=== PATIENT | female | born 1935 | race Caucasian/White ===

== ENCOUNTER 2020-08-23 18:35 | Inpatient (IN) | payer MEDICARE, BC ==
[2020-08-23] MEDS ORDERED: Senokot S 8.6-50 MG TAB PO PRN (22:13)
[2020-08-23] MEDS ORDERED: Acetaminophen 325 MG TAB PO PRN (22:13)
[2020-08-23 23:25] LABS: #Eosinphils 0.2 thou/uL (0.0-0.7); #Lymphocytes 0.8 thou/uL (1.20-3.40); #Monocytes 0.7 thou/uL (0.11-0.59); #Neutrophils 4.1 thou/uL (1.40-6.50); %Basophils 0.4 % (0.0-1.0); %Eosinophils 3.1 % (0.0-10.0); %Lymphocytes 14.5 % (21.0-51.0); %Monocytes 11.5 % (0.0-10.0); %Neutrophils 70.6 % (42.0-75.0); Mean Corpuscular HGB CONC 34.1 g/dL (32.0-36.0); Mean Corpuscular Hemoglobin 31.9 pg (27.0-31.0); Mean Corpuscular Volume 93.6 fL (78.0-98.0); Mean Platelet Volume 8.3 fL (7.4-10.4); Platelet Count 170 thou/uL (130-400); RBC Distribution Width 11.7 % (11.5-14.5); Red Blood Cell (RBC) Count 3.14 mill/uL (4.20-5.40); White Blood Cell (WBC) Count 5.8 thou/uL (4.8-10.8)
[2020-08-23] MEDS: Sodium Chloride 0.9% 1,000 ML IV SCH (23:30)
[2020-08-23 23:36] LABS: Anion Gap 10 mmol/L (10-20); BUN (Urea Nitrogen) 24 mg/dL (9.8-20.1); Calc. Creatinine Clearance 0 mL/min (70-130); Calcium 8.4 mg/dL (7.8-10.44); Carbon Dioxide 25 mmol/L (23-31); Chloride 106 mmol/L (98-107); Glucose 98 mg/dL (83-110); Potassium 3.7 mmol/L (3.5-5.1); Sodium 137 mmol/L (136-145)
[2020-08-24 00:47] VITALS: BMI 19.4
[2020-08-24] MEDS: Famotidine 20 MG TAB PO SCH ×2 (08:58→08:59)
[2020-08-24] MEDS: Enoxaparin Sodium 40 MG/0.4 ML SYRINGE SC SCH (08:58)
[2020-08-24] MEDS: Sodium Chloride 0.9% 1,000 ML IV SCH (15:32)
[2020-08-24] MEDS: cefTRIAXone\\ROCEPHIN 2 GM in Sodium Chloride 0.9% 100 ML IVPB SCH (17:34)
[2020-08-24] MEDS: Aspirin 81 mg Enteric Coated Tablet PO SCH (22:07)
[2020-08-25] MEDS: Sodium Chloride 0.9% 1,000 ML IV SCH ×2 (02:59→17:22)
[2020-08-25] MEDS ORDERED: Aspirin 81 mg Enteric Coated Tablet PO SCH (09:00)
[2020-08-25] MEDS: Enoxaparin Sodium 40 MG/0.4 ML SYRINGE SC SCH (09:28)
[2020-08-25] MEDS: Famotidine 20 MG TAB PO SCH (09:29)
[2020-08-25] MEDS: cefTRIAXone\\ROCEPHIN 2 GM in Sodium Chloride 0.9% 100 ML IVPB SCH (17:30)
[2020-08-25] MEDS: Aspirin 81 mg Enteric Coated Tablet PO SCH (21:57)
[2020-08-26] MEDS: Sodium Chloride 0.9% 1,000 ML IV SCH ×2 (05:43→09:16)
[2020-08-26] MEDS: Famotidine 20 MG TAB PO SCH (09:17)
[2020-08-26] MEDS: Enoxaparin Sodium 40 MG/0.4 ML SYRINGE SC SCH (09:17)
[2020-08-26 16:44] VITALS: BP 132/69; TEMP 97.7
== END 2020-08-26 17:40 | disposition home or self-care (01) | DRG 872 ==
LOC: T4-B 18:35 → OBSVTOIN 08-24 18:37
PROVIDERS: ADMIT Internal Medicine; ATTEND Internal Medicine
DX: A41.9 Sepsis, unspecified organism (principal); N39.0 Urinary tract infection, site not specified; Z16.29 Resistance to other single specified antibiotic; I48.20 Chronic atrial fibrillation, unspecified; M81.0 Age-related osteoporosis without current pathological fracture; M41.9 Scoliosis, unspecified; Z98.890 Other specified postprocedural states; Z79.899 Other long term (current) drug therapy; Z79.82 Long term (current) use of aspirin
CPT/HCPCS: 36415; 80048; 83605; 85025; 96374; G0378; J0696; J3490